=== PATIENT | male | born 1960 | race Two or more races ===

== ENCOUNTER → 2017-11-28 | Outpatient (CLI) | payer BC ==
[~2017-11-28] MED LIST: ASPI-1471 PO; ATOR20TA65 PO; CHOL100058 PO; CIP500 PO; CYAN250013 PO; DIPH-618 PO; DOCU-299 PO; DOCU-416 PO; EMPA10TA PO; FERR325C2 PO; FLU45SYR25 IM ONLY; FLU60SYR30 IM ONLY; FOLI-68 PO; GABA-503 PO; GABA-549 PO; HYDR-3250 PO; INDO-21 PO; INSU100I5 SQ; INSU100I8 SC; INSU100I8 SQ; INSU200I4 SQ; LEV125 PO; LEVI SUBQ; LEVO137T23 PO; LEVO50TA86 PO; LOSA100T67 PO; LOSA50TA72 PO; MELO-205 PO; MELO-207 PO; METF-420 PO; METF-421 PO; METR-1 PO; NEX40PT PO; NOR5/325 PO; NOVOLOG SUBQ; OMEP40CA48 PO; OXYC-865 PO; OXYC-944 PO; PER PO; PREG75CA60 PO; PRILOSEC PO; SULF-198 PO; TRAM-420 PO
[2017-11-28 09:44] LABS: PLATELET COUNT, AUTOMATED 353 K/uL (150-450)
[2017-11-28 10:20] LABS: LDL CHOLESTEROL 53 mg/dl
== END ==
LOC: LAB 09:03
PROVIDERS: ATTEND Internal Medicine
DX: E11.40 Type 2 diabetes mellitus with diabetic neuropathy, unspecified (principal); E78.5 Hyperlipidemia, unspecified; E11.9 Type 2 diabetes mellitus without complications; D72.829 Elevated white blood cell count, unspecified; E03.9 Hypothyroidism, unspecified; K21.9 Gastro-esophageal reflux disease without esophagitis; I10 Essential (primary) hypertension; G47.33 Obstructive sleep apnea (adult) (pediatric)
CPT/HCPCS: 36415; 81001; 82040; 82043; 82247; 82306; 82310; 82374; 82435; 82465; 82565; 82607; 82728; 82746; 82947; 83036; 83540; 83550; 83718; 84075; 84132; 84153; 84155; 84295; 84443; 84450; 84460; 84478; 84520; 84550; 85025

== ENCOUNTER → 2018-10-16 | Outpatient (CLI) | payer BC ==
[~2018-10-16] MED LIST changes: -GABA-503 PO; +GABA-533 PO; -LOSA100T67 PO; +LOSA100T75 PO; -LOSA50TA72 PO; +LOSA50TA80 PO; -METF-421 PO; +METF-452 PO; +TADA20TA33 PO
[2018-10-16 09:57] LABS: PLATELET COUNT, AUTOMATED 359 K/uL (150-450)
[2018-10-16 11:16] LABS: LDL CHOLESTEROL 62 mg/dl
== END ==
LOC: LAB 09:34
PROVIDERS: ATTEND Internal Medicine
DX: E78.5 Hyperlipidemia, unspecified (principal); E11.9 Type 2 diabetes mellitus without complications; E03.9 Hypothyroidism, unspecified; K21.9 Gastro-esophageal reflux disease without esophagitis; I10 Essential (primary) hypertension; N52.9 Male erectile dysfunction, unspecified
CPT/HCPCS: 36415; 82040; 82247; 82310; 82374; 82435; 82465; 82565; 82947; 83036; 83718; 84075; 84132; 84155; 84295; 84443; 84450; 84460; 84478; 84520; 85025